=== PATIENT | male | born 1950 | race Caucasian/White ===

== ENCOUNTER 2019-02-18 09:12 | Inpatient (IN) ==
--- NOTE | 2019-02-18 03:00 | Internal Med History&Physical ---
<Tip Montelongo - Last Filed: 02/18/19 06:38> Date of Encounter: 02/18/19 Time of Encounter: 02:30 Internal Medicine - H&P: HPI Chief complaint: Shortness of breath History of present illness: Mr. Sim is a 69 year old former smoker (quit 20 yrs ago) past medical history of atrial fibrillation, hypertension, anxiety peripheral artery disease, COPD who presented to the [facility] because of shortness of breath. Patient has a history of severe emphysema and takes bronchodilators at home, endorses that his symptoms suddenly worsened over the last couple days and he was found to desaturate to 60%, and was brought to the ED at the [facility]. Patient is typically on 3 L of flow nasal cannula at home. He denies any recent sick contacts or travels. He tells me that he had seen his PCP about a month ago for an upper respiratory infection, was given a course of antibiotics and he he completed the course. Patient denies any recent steroid use. Denies any increase in frequency of cough or change in the color of his sputum. He denies any chest pain, nausea, diaphoresis, numbness or tingling in extremities. Initial workup in the ED at the [facility] showed a patient was afebrile, BP 116/71,RR:24, spO2: 57% on 4L NC. His ABG showed primary respiratory alkalosis with metabolic acidosis with pH : 7.41, pCO2: 28.5 with a HCO3 of 18.2. Patient had an elevated lactic acid of 4.4, WBC 14.3, Hb 14.7, UA was positive for large leukocyte esterase, and blood, with protein of 100. Patient's CTA was negative for any pulmonary embolism. However, CTA showed bilateral lower lobe consolidation suggestive of pneumonia. There also concern for mediastinal lymphadenopathy as well as partially calcified right pulmonary mass which could be granulomatous or neoplastic in nature. CTA also showed chronic occlusion of the abdominal aorta with collateralization. Patient was transferred to the [facility] because of concerns for sepsis secondary to UTI/ pneumonia Past Med Surg Social Fam HX - Past Medical History Medical history: atrial fibrillation, CHF, COPD Additional medical history: chf/afib/copd/knee sx/home 02/back sx/pelvis sx/right hip pinning/ Psychiatric history: anxiety - Past Surgical History Surgical History: hip replacement Additional surgical history: knee sx/home 02/back sx/pelvis sx/right hip pinning/ - Social History Smoking Status: Former smoker Packs per day: 1 Smokeless Tobacco Status: No Alcohol use: none Drug use: none Internal Medicine - H&P: Meds Alprazolam 0.5 mg PO TID PRN 10/22/15 [History] Aspirin Enteric Coated [Aspirin EC] 162 mg PO DAILY #10 tablet.dr 10/22/15 [Rx] Budesonide [Pulmicort Flexhaler 180mcg] 180 mcg AER BID 10/22/15 [History] Buspirone [Buspar] 15 mg PO TID 10/22/15 [History] Citalopram 40 mg PO QDPC 10/22/15 [History] Duloxetine 60 mg PO QDPC 10/22/15 [History] Furosemide 40 mg PO 3XW 10/22/15 [History] Ipratropium/Albuterol Sulfate 0.5 mg AER BID 10/22/15 [History] Metoprolol 75 mg PO QDPC 10/22/15 [History] Minocycline 100 mg PO QDPC 10/22/15 [History] Multivitamin [Multi-Day Vitamins] PO QDPC 10/22/15 [History] Omeprazole [PriLOSEC] 40 mg PO QDPC 10/22/15 [History] OxyCODONE Immed Rel [Roxicodone 5 MG] 5 - 10 mg PO Q6HR PRN #30 tablet 10/22/15 [Rx] Tamsulosin [Flomax] 0.4 mg PO QDPC 10/22/15 [History] Tiotropium [Spiriva] 18 mcg AER QDPC 10/22/15 [History] Allergy/AdvReac Type Severity Reaction Status Date / Time vancomycin Allergy Hives Verified 10/22/15 12:53 All Systems PM: A 10-system review of systems was performed and is negative for pertinent findings except as documented above in the HPI. - Constitutional Constitutional: no fever(s) - Cardiovascular Cardiovascular ROS IM: no chest pain - Respiratory Respiratory: no cough, no hemoptysis - Gastrointestinal Gastrointestinal: no abdominal pain - Musculoskeletal Musculoskeletal ROS IM: no arthralgias - Constitutional Vitals: Temp Pulse Resp BP Pulse Ox 98.4 F 79 22 135/81 92 02/18/19 02:08 02/18/19 02:08 02/18/19 02:08 02/18/19 02:08 02/18/19 02:08 Exam: Gen.: Vitals noted. No acute distress. Alert, awake and oriented * [address], and time, well developed, well-nourished resting comfortably in bed. Pleasant. HEENT: oropharynx clear, Normocephalic, atraumatic, MMM Neck: supple, no JVD, no lymphadenopathy, no carotid bruit. Cardiac: RRR, no murmur, +S1/S2, No BLE edema, PMI non-displaced Pulmonary: decreased breath sounds bilaterally, no wheezes, rales or rhonchi, equal chest expansion, Abdomen: soft, nontender, BS noted, no guarding, non- distended. No organomegaly, no pulsatile masses, Skin: warm and dry, no visible lesions. Feels warm, clammy, no rashes, no lesions, no erythema MSK: Right hip pain which is chronic in nature . Faint pulse bilaterally in the lower extremities likely due to PVD. ROM not assessed. no joint swelling noted, gait not assessed while in bed. Non tender calf or clubbing, no cyanosis/clubbing/ or edema Neuro: A&O, moves all extremities, no focal deficits, sensation intact Psych: Appropriate mood and behavior, normal speech. Internal Med - H&P Results - Labs CBC & Chem 7: 02/18/19 04:35 02/18/19 04:35 - Assessment and Plan (1) Sepsis Current Visit: Yes Status: Acute Assessment and plan: -Likely secondary to UTI/pneumonia. -Patient met 2/4 SIRS criteria with HR118, WBC: 14.3. Lactate was 4.4 -Patient's UA was positive for large leukocyte esterase with proteinurea -Patient's CTA was positive for bilateral low lobe consolidation with concerns for pneumonia -Patient is on 3 L of home oxygen but he is currently on 60 L of high flow PLAN: -Legionella and S pneumo antigen pending. -sputum and blood cultures pending - MRSA swab pending - Currently on broad spectrum Abx Vanc and Zosyn. We will give her Benadryl to the patient because patient develops rashes with vancomycin .We will de-escalate pending culture sensitivities Qualifiers: Qualified Code(s): A41.9 - Sepsis, unspecified organism (2) Acute respiratory failure with hypoxia Current Visit: Yes Status: Acute Assessment and plan: same as above (3) COPD (chronic obstructive pulmonary disease) Current Visit: No Status: Chronic Assessment and plan: -Has a history of for severe emphysema. -He is on Spiriva as his home inhaler -Does not appear to be in COPD exacerbation because patient does not having increase in frequency of cough or change in the color of sputum -Patient's CT showed severe emphysema along with heterogenous pulmonary opacities. -Currently on DuoNeb's when necessary. No indications for steroids at the moment Qualifiers: COPD type: emphysema Emphysema type: unspecified Qualified Code(s): J43.9 - Emphysema, unspecified (4) Pneumonia Current Visit: Yes Status: Acute Assessment and plan: -Patient's CTA at the [facility] ED showed lateral lower lobe consolidation suggestive of pneumonia -On physical exam he has a decreased breath sounds bilaterally. No evidence of wheezing rhonchi or rales. -He has remained afebrile and is not leukocytosis -Currently on broad-spectrum antibiotics -Blood and sputum cultures pending -Legionella and strep pneumo antigens pending Qualifiers: Qualified Code(s): J18.9 - Pneumonia, unspecified organism (5) UTI (urinary tract infection) Current Visit: Yes Status: Acute Assessment and plan: -Recent UA showed a large amount of leukocyte esterase , proteinuria and hematuria -Physical exam he endorses a mildsuprapubic tenderness. -Currently on Rocephin for UTI Qualifiers: Qualified Code(s): N39.0 - Urinary tract infection, site not specified; R31.9 - Hematuria, unspecified (6) Peripheral vascular disease Current Visit: Yes Status: Acute Assessment and plan: -Patient's CTA abdomen showed extensive atherosclerotic calcification of the abdominal aorta with collateralization. -On physical exam, patient has diminished bilateral lower extremity pulses. -We will consult vascular surgery and await their recommendations (7) DVT prophylaxis Current Visit: Yes Status: Acute Assessment and plan: scds - Time Spent With Patient Total time spent is greater than 50% in coordination of care (as documented) at patient's floor/unit and/or counseling patient: <Alan Dan - Last Filed: 02/18/19 08:30> Date of Encounter: 02/18/19 Internal Medicine - H&P: HPI History of present illness: Mr. Sim is a 69 year old male All Systems PM: A 10-system review of systems was performed and is negative for pertinent findings except as documented above in the HPI. - Constitutional Vitals: Temp Pulse Resp BP Pulse Ox 99.1 F 73 18 95/61 91 02/18/19 08:00 02/18/19 08:00 02/18/19 08:00 02/18/19 08:00 02/18/19 08:00 Internal Med - H&P Results - Labs CBC & Chem 7: 02/18/19 04:35 02/18/19 04:35 Labs: Short CBC 02/18/19 Range/Units 04:35 WBC 9.6 (4.3-11.1) K/mcL Hgb 14.7 (12.9-16.9) g/dL Hct 44.4 (37.5-50.1) % Plt Count 120 L (140-400) K/mcL Neutrophils # 8.4 (1.6-8.9) K/mcL BMP 02/18/19 04:35 Sodium 134 L Potassium 4.3 Chloride 104 Carbon Dioxide 20 L BUN 26 H Creatinine 1.39 H Glucose 156 H Calcium 8.6 Cardiac Enzymes 02/18/19 Range/Units 04:35 Troponin I 0.03 (< 0.04) ng/mL - ABG Interpretation ABG results: 02/18/19 04:02 ABG pH 7.43 ABG pCO2 30 L ABG pO2 79 L ABG HCO3 20 L ABG Total CO2 21 ABG O2 Saturation 96 ABG Base Excess -3 L - Time Spent With Patient Total time spent is greater than 50% in coordination of care (as documented) at patient's floor/unit and/or counseling patient: - Attending Attestation I performed a history and physical examination of the patient and discussed his management with the resident. I reviewed the resident's note and agree with the assessment and plan of care. Patient with a history of severe emphysema admitt ed for COPD exacerbation plus or minus underlying pneumonia. CTA ruled out PE. We will start patient on broad-spectrum antibiotics due to reports of recent outpatient treatment. We will obtain flu swab. Patient did not tolerate BiPAP and is currently on high flow and stable from respiratory standpoint. Patient does have a history of peripheral arterial disease and has been complaining of chronic intermittent cramping of his lower extremities. There was difficulty obtaining lower extremity pulses with Doppler. Recommend vascular consult.
[2019-02-18] MEDS: Ipratropium/Albuterol Neb 3 ML IH SCH ×6 (04:05→23:16)
[2019-02-18 04:07] LABS: ABG Base Excess -3 mEq/L (-2 to 3); ABG HCO3 20 mEq/L (21-27); ABG Oxygen Saturation 96 % (95-98); ABG PCO2 30 mmHg (35-45); ABG PH 7.43 pH Units (7.32-7.45); ABG PO2 79 mmHg (85-104); ABG TCO2 21 mEq/L (20-26)
[2019-02-18 04:49] LABS: Basophils % 0.1 %; Hematocrit 44.4 % (37.5-50.1); Hemoglobin 14.7 g/dL (12.9-16.9); Immature Granulocytes % 0.6 % (0-4); Lymphocytes # 0.8 K/mcL (0.6-4.6); Lymphocytes % 7.8 %; Mean Corpuscular HGB Conc 33.1 g/dL (31.6-35.5); Mean Corpuscular Hemoglobin 28.9 pg (28.0-33.3); Mean Corpuscular Volume 87.4 fL (83.0-100.0); Mean Platelet Volume 11.5 fL (9.4-12.4); Monocytes # 0.4 K/mcL (0.0-1.3); Monocytes % 4.6 %; Neutrophils # 8.4 K/mcL (1.6-8.9); Platelet Count 120 K/mcL (140-400); Red Blood Count 5.08 M/mcL (4.19-5.50); Red Cell Distribution Width 14.6 % (11.5-14.5); Segmented Neutrophils % 86.9 %
[2019-02-18 05:06] LABS: BUN/Creatinine Ratio 19 (6-26); Blood Urea Nitrogen 26 mg/dL (8-23); Calcium 8.6 mg/dL (8.6-10.3); Carbon Dioxide 20 mEq/L (23-29); Chloride 104 mEq/L (98-107); Glucose 156 mg/dL (70-105); Osmolality,Calculated 286 (280-300); Potassium 4.3 mEq/L (3.5-5.1); Sodium 134 mEq/L (136-145); eGFR For Non-African Americans 51 (> 60)
[~2019-02-18 09:12] MED LIST: Naloxone 0.4 MG/ML INJ IVP PRN; Piperacillin/Tazobactam 3.375 GM in 0.9 % Sodium Chloride Mini Bag 100 ML IVPB SCH
[2019-02-18] MEDS ORDERED: Aminoglycoside Consult 1 EACH MC ONE (09:20)
--- NOTE | 2019-02-18 10:30 | Vascular/Endovasc Consult Note ---
Date of Encounter: 02/18/19 Time of Encounter: 08:15 Assessment and Plan (1) COPD (chronic obstructive pulmonary disease) Current Visit: Yes Status: Chronic Patient has chronic and severe COPD. He is clearly not a candidate for open revascularization for his aortic occlusion. At this point he is not a candidate for an extra anatomic bypass as well. Qualifiers: COPD type: emphysema Emphysema type: unspecified Qualified Code(s): J43.9 - Emphysema, unspecified (2) Peripheral vascular disease Current Visit: Yes Status: Chronic Patient demonstrates chronic aortic occlusion and probable chronic lower extremity disease. The lower extremity disease has not been documented to my knowledge. Due to his ongoing pulmonary concerns and possible pneumonia and exacerbation of COPD he is not a candidate for anesthesia or endovascular intervention. In order to better understand his lower extremity status I will obtain ABIs. (3) Pneumonia Current Visit: Yes Status: Acute Patient reported as having a pneumonia from outside hospital. Patient will be further evaluated by the hospitalist and pulmonology services. Qualifiers: Pneumonia type: due to unspecified organism Laterality: unspecified laterality Lung location: unspecified part of lung Qualified Code(s): J18.9 - Pneumonia, unspecified organism - History of Present Illness Consult date: 02/18/19 Consult reason: PAD/aortic occlusion Chief complaint: Shortness of breath History of present illness: Mr. Sim is a 69 year old male Who was transferred from the [facility] early this morning. His full history is not completely known as he is not able to provide me which much history but there is a family friend in the room with him this morning. I was called early this morning from the outside hospital to discuss this case because apparently they were concerned about lower extremity pain. However the patient has profound COPD and possible pneumonia. When he was at the other facility his O2 saturation was in the high 50s to low 60% range. I cannot obtain much of a history in regards to his lower extremity issues except that he has had chronic lower extremity pain. He had had a fall from a height of about 10-12 feet over 10 years ago. This led to hip and spine surgery. He has had chronic pain since that time. It is unknown what his true vascular status is but according to the family friend this has been addressed in the past and the patient had declined any intervention. While at [facility] [place] a CT scan was performed of the abdomen and pelvis which was reported as demonstrating an aortic occlusion. I will review those images myself later today. There are no noninvasive studies to review. The patient's history in regards to his ambulation or exercise tolerance is unknown. It is clear he has profound pulmonary disease and uses oxygen at home. His is ill and is on dialysis treatment. Past Med Surg Social Fam HX - Past Medical History Medical history: atrial fibrillation, CHF, COPD Additional medical history: chf/afib/copd/knee sx/home 02/back sx/pelvis sx/right hip pinning/ Psychiatric history: anxiety - Past Surgical History Surgical History: hip replacement Additional surgical history: knee sx/home 02/back sx/pelvis sx/right hip pinning/ - Social History Smoking Status: Former smoker Packs per day: 1 Smokeless Tobacco Status: No Alcohol use: none Drug use: none Medications and Allergies Aspirin Enteric Coated [Aspirin EC] 162 mg PO DAILY #10 tablet. 10/22/15 [Rx] Budesonide [Pulmicort Flexhaler 180mcg] 180 mcg AER BID 10/22/15 [History] Buspirone [Buspar] 15 mg PO TID 10/22/15 [History] Citalopram 40 mg PO QDPC 10/22/15 [History] Duloxetine 60 mg PO QDPC 10/22/15 [History] Furosemide 40 mg PO 3XW 10/22/15 [History] Ipratropium/Albuterol Sulfate 0.5 mg AER BID 10/22/15 [History] Metoprolol 75 mg PO QDPC 10/22/15 [History] Minocycline 100 mg PO QDPC 10/22/15 [History] Multivitamin [Multi-Day Vitamins] PO QDPC 10/22/15 [History] Omeprazole [PriLOSEC] 40 mg PO QDPC 10/22/15 [History] Tamsulosin [Flomax] 0.4 mg PO QDPC 10/22/15 [History] Tiotropium [Spiriva] 18 mcg AER QDPC 10/22/15 [History] Buprenorphine 1 patch TP QWEEK 02/18/19 [History] Oxycodone HCl 15 mg PO Q6H PRN 02/18/19 [History] Allergy/AdvReac Type Severity Reaction Status Date / Time vancomycin Allergy Hives Verified 10/22/15 12:53 All Systems Review: The remainder of the systems were reviewed and are negative Exam Vital Signs, Last 4 Hours Temp Pulse Resp BP Pulse Ox 02/18/19 08:15 73 02/18/19 08:00 99.1 F 73 18 95/61 91 General: Present: Other (Cachectic appearing white male who appears older than his stated age.). Absent: Well developed, Well nourished HEENT: Present: Trachea midline, Other (Facial and neck muscle wasting.) Neck: Absent: JVD, Left Carotid bruit, Right Carotid bruit, Midline deformity, Tracheal deviation Cardiac: Present: Reg Rate and Rhythm, No Murmur Lungs: Present: Decreased breath sounds Neuro: Present: No focal deficits noted Abdomen: Present: Soft, Non-tender Vascular: Present: Pulse, absent (Patient has no palpable femoral, popliteal, or pedal pulses.), Color/Temperature (Patient demonstrates chronic discoloration of a dark purple to black nature on the lower legs and feet region. There are no ulcerations. There is muscle wasting of both lower extremities.). Absent: Edema Skin: Absent: Wound/ulcer(s) Consult Discharge Plan - Plan Referrals: Jennifer Gupta MD [Non-Partnered Physician] - 03/03/19 12:00 pm
--- NOTE | 2019-02-18 14:06 | Pulmonology Consult Note ---
Date of Encounter: 02/18/19 Time of Encounter: 15:30 Assessment and Plan (1) Lung mass Current Visit: Yes Status: Chronic I have reviewed the report from outside hospital and they do not have the access for the images at this time and reading the report this is most likely an old granulomatous mass since patient knows about it and he does not remember if there was a biopsy was done. However because of his previous history of smoking and advanced emphysema that he has malignancies remain in the differential diagnosis. At this time would not recommend any intervention, however as outpatient he could have PET scan or short interval CT chest to see of there is any changes. I have explained this to the patient and also family at the bedside. I offered him to follow-up as outpatient if he would like to do that. (2) Acute and chronic respiratory failure Current Visit: Yes Status: Acute Patient oxygen saturation is acceptable and his been treated for pneumonia with antibiotics and he will remain high at risk for complications since he has advanced lung disease. Titrate FiO2 to keep SPO2 around 90%. Qualifiers: Respiratory failure complication: hypoxia Qualified Code(s): J96.21 - Acute and chronic respiratory failure with hypoxia (3) COPD with exacerbation Current Visit: Yes Status: Acute I will add Symbicort and also I believe he will benefit from short course of systemic steroid. As outpatient he will need to follow-up and he will need pulmonary function test as well as pulmonary rehabilitation. History of Present Illness Consult date: 02/18/19 Requesting physician: Olimpia Arce Reason for consult: lung mass Chief complaint: Shortness of breath History of present illness: This is a very pleasant 69-year-old male with a significant smoking history in the past and he has COPD and he stated he has seen a wig maker in the past and he is only on 1 inhaler that he did not remember the name and he is on home oxygen 3 L/m. Patient was told in the past that he had lung mass about 12 years ago and he does not remember if it was biopsied at that time. Patient was transferred from outside hospital for shortness of breath. He stated he is feeling somewhat better at this time. He denies any chest pain. Patient has some wheezing and denies any increase of his cough or sputum production. Overall he said some days he is active and he never had pulmonary rehabilitation. Pulmonary consulted because CT chest showed abnormalities. He denies any history of sarcoidosis and denies any history of previous tuberculosis. Past Med Surg Social Fam HX - Past Medical History Medical history: atrial fibrillation, CHF, COPD Additional medical history: chf/afib/copd/knee sx/home 02/back sx/pelvis sx/ right hip pinning/ Psychiatric history: anxiety - Past Surgical History Surgical History: hip replacement Additional surgical history: knee sx/home 02/back sx/pelvis sx/right hip pinning/ - Social History Smoking Status: Former smoker Packs per day: 1 Smokeless Tobacco Status: No Alcohol use: none Drug use: none Medications and Allergies Aspirin Enteric Coated [Aspirin EC] 162 mg PO DAILY 02/18/19 [History] Buprenorphine 1 patch TP QWEEK 02/18/19 [History] Buspirone HCl [Buspar] 5 mg PO 02/18/19 [History] Duloxetine HCl [Cymbalta] 60 mg PO DAILY 02/18/19 [History] Fluticasone Propionate Nasal [Flonase] 50 mcg NS DAILY 02/18/19 [History] Furosemide [Lasix] 40 mg PO Q48H 02/18/19 [History] Multivit-Min/Iron/Folic Acid/K [Adults Multivitamin Tablet] 1 each PO DAILY 02/18/19 [History] Omeprazole [PriLOSEC] 40 mg PO DAILY 02/18/19 [History] Oxycodone HCl 15 mg PO Q6H PRN 02/18/19 [History] Tamsulosin [Flomax] 0.4 mg PO DAILY 02/18/19 [History] Tiotropium [Spiriva] 18 mcg IH DAILY 02/18/19 [History] Tizanidine HCl [Zanaflex] 2 mg PO BID 02/18/19 [History] Allergy/AdvReac Type Severity Reaction Status Date / Time vancomycin Allergy Hives Verified 10/22/15 12:53 All Systems: The remainder of the systems were reviewed and are negative Physical Examination Vital Signs: Vital Signs, Last 4 Hours Temp Pulse Resp BP Pulse Ox 02/18/19 11:46 20 99/68 94 02/18/19 11:42 98.7 F 66 20 99/68 94 General appearance: appears uncomfortable Eyes: nonicteric ENT: oropharynx dry Neck: supple, no lymphadenopathy Effort: mildly labored Inspection: hyperextended Auscultation: bilateral: diminished breath sounds Percussion: bilateral: not dull Tactile fremitus: bilateral: normal Cardiovascular: regular rate and rhythm Gastrointestinal: normoactive bowel sounds, non-distended Integumentary: other (Discoloration of the lower extremities) Extremities: no cyanosis, no edema normal mental status, non-focal exam mood appropriate Results - Laboratory Findings CBC and BMP: 02/18/19 04:35 02/18/19 04:35 ABG ABG pH 7.43 pH Units (7.32-7.45) 02/18/19 04:02 ABG pCO2 30 mmHg (35-45) L 02/18/19 04:02 ABG pO2 79 mmHg (85-104) L 02/18/19 04:02 ABG O2 Saturation 96 % (95-98) 02/18/19 04:02 Abnormal lab findings: Abnormal lab results RDW 14.6 % (11.5-14.5) H 02/18/19 04:35 Plt Count 120 K/mcL (140-400) L 02/18/19 04:35 ABG pCO2 30 mmHg (35-45) L 02/18/19 04:02 ABG pO2 79 mmHg (85-104) L 02/18/19 04:02 ABG HCO3 20 mEq/L (21-27) L 02/18/19 04:02 ABG Base Excess -3 mEq/L (-2 to 3) L 02/18/19 04:02 Sodium 134 mEq/L (136-145) L 02/18/19 04:35 Carbon Dioxide 20 mEq/L (23-29) L 02/18/19 04:35 BUN 26 mg/dL (8-23) H 02/18/19 04:35 Creatinine 1.39 mg/dL (0.70-1.30) H 02/18/19 04:35 Est GFR (Non-Af Amer) 51 (> 60) L 02/18/19 04:35 Glucose 156 mg/dL (70-105) H 02/18/19 04:35 POC Glucose 143 mg/dL (70-99) H 02/18/19 05:11 B-Natriuretic Peptide 1845 pg/mL (Less than 100) H 02/18/19 04:35 - Microbiology Findings Microbiology Findings: Microbiology, Last 48 Hours 02/18/19 04:01 Influenza Types A,B Antigen - Final Nasopharyngeal 02/18/19 04:27 Blood Culture - Preliminary Peripheral Venipuncture Culture is incubating and being continuously monitored for growth. Final report to follow. 02/18/19 04:35 Blood Culture - Preliminary Peripheral Venipuncture Culture is incubating and being continuously monitored for growth. Final report to follow. - Diagnostic Findings CT scan - chest: report reviewed - Clinical Findings Intake & Output: Intake & Output 02/17/19 02/18/19 02/18/19 23:59 07:59 15:59 Output Total 0 / 0 100 / 100 Balance 0 / 0 -100 / -100 Weight 63.7 kg Consult Discharge Plan - Plan Referrals: Jennifer Gupta MD [Non-Partnered Physician] - 03/03/19 12:00 pm
[2019-02-18] MEDS ORDERED: BUPRENORPHINE TP SCH (15:00)
--- NOTE | 2019-02-18 15:00 | Event Note ---
Date of Encounter: 02/18/19 Time of Encounter: 11:57 Patient was examined. Review of the vascular surgeon note -not the surgical candidate at this time but OSORIO ordered. Consulted tank truck driver. Review the med-rac. MRSA screen negative therefore is stopped vancomycin. Continue Zosyn for now. 3 L home oxygen.
[2019-02-18] MEDS: Piperacillin/Tazobactam 3.375 GM in 0.9 % Sodium Chloride Mini Bag 100 ML IVPB SCH ×2 (16:30→22:44)
[2019-02-18] MEDS: Furosemide 40 MG TABLET PO SCH (16:31)
[2019-02-18] MEDS: *HR* OxyCODONE Immed Rel 15 MG TABLET PO PRN ×2 (16:38→22:43)
[2019-02-18] MEDS: MethylPREDNISolone 40 MG/ML VIAL IVP SCH (18:58)
[2019-02-18] MEDS: Budesonide/Formoterol 160/4.5 1 PUFF INH IH SCH (20:02)
[2019-02-18] MEDS: tiZANidine 4 MG TABLET PO SCH (20:18)
[2019-02-19] MEDS: Ipratropium/Albuterol Neb 3 ML IH SCH ×6 (03:27→23:46)
[2019-02-19] MEDS: *HR* OxyCODONE Immed Rel 15 MG TABLET PO PRN ×4 (04:48→23:52)
[2019-02-19] MEDS: MethylPREDNISolone 40 MG/ML VIAL IVP SCH (05:56)
[2019-02-19] MEDS: Piperacillin/Tazobactam 3.375 GM in 0.9 % Sodium Chloride Mini Bag 100 ML IVPB SCH ×2 (05:57→14:07)
[2019-02-19 06:54] LABS: Hematocrit 40.7 % (37.5-50.1); Hemoglobin 13.8 g/dL (12.9-16.9); Immature Granulocytes % 0.5 % (0-4); Lymphocytes # 0.6 K/mcL (0.6-4.6); Lymphocytes % 5.6 %; Mean Corpuscular HGB Conc 33.9 g/dL (31.6-35.5); Mean Corpuscular Hemoglobin 29.4 pg (28.0-33.3); Mean Corpuscular Volume 86.6 fL (83.0-100.0); Mean Platelet Volume 11.2 fL (9.4-12.4); Monocytes # 0.7 K/mcL (0.0-1.3); Monocytes % 7.5 %; Neutrophils # 8.4 K/mcL (1.6-8.9); Platelet Count 127 K/mcL (140-400); Segmented Neutrophils % 86.4 %
[2019-02-19 07:15] LABS: BUN/Creatinine Ratio 19 (6-26); Blood Urea Nitrogen 26 mg/dL (8-23); Calcium 8.5 mg/dL (8.6-10.3); Carbon Dioxide 22 mEq/L (23-29); Chloride 104 mEq/L (98-107); Glucose 132 mg/dL (70-105); Osmolality,Calculated 289 (280-300); Potassium 4.1 mEq/L (3.5-5.1); Sodium 136 mEq/L (136-145); eGFR For Non-African Americans 51 (> 60)
[2019-02-19] MEDS: Budesonide/Formoterol 160/4.5 1 PUFF INH IH SCH ×2 (07:30→19:32)
[2019-02-19] MEDS: tiZANidine 4 MG TABLET PO SCH ×2 (08:02→20:47)
[2019-02-19] MEDS: Multivit/Ca/Min/Fe/FA 1 TAB TABLET PO SCH (08:02)
[2019-02-19] MEDS: Aspirin Enteric Coated 81 MG Tablet PO SCH (08:03)
[2019-02-19] MEDS: Fluticasone Propionate Nasal 50 MCG/SPRAY BOTTLE NS SCH (08:20)
[2019-02-19 09:42] LABS: Basophils % 0.1 %; Hematocrit 44.1 % (37.5-50.1); Hemoglobin 14.6 g/dL (12.9-16.9); Immature Granulocytes % 0.6 % (0-4); Lymphocytes # 0.5 K/mcL (0.6-4.6); Lymphocytes % 4.6 %; Mean Corpuscular HGB Conc 33.1 g/dL (31.6-35.5); Mean Corpuscular Volume 87.5 fL (83.0-100.0); Monocytes # 0.3 K/mcL (0.0-1.3); Neutrophils # 9.9 K/mcL (1.6-8.9); Platelet Count 128 K/mcL (140-400); Red Blood Count 5.04 M/mcL (4.19-5.50); Red Cell Distribution Width 15.3 % (11.5-14.5); Segmented Neutrophils % 91.7 %
--- NOTE | 2019-02-19 11:25 | Vascular/Endovas Progress Note ---
Date of Encounter: 02/19/19 Time of Encounter: 10:30 - Assessment and plan (1) COPD (chronic obstructive pulmonary disease) Current Visit: Yes Status: Chronic Patient has chronic and severe COPD. He is not a candidate for open or endovascular intervention. At this point it is not necessary and he is not symptomatic from a vascular standpoint. I interpret his aortic occlusion is chronic with diffuse collateralization. His lower extremities are viable. The pain he was experiencing at the outside hospital is related to his chronic pain from his back and right hip injury and not ischemic in origin. No further vascular intervention is recommended. This recommendation was discussed in full with the patient as well as the results of the ankle-brachial index.. Vascular surgery will sign off the patient for now. Please reconsult when necessary. Qualifiers: COPD type: emphysema Emphysema type: unspecified Qualified Code(s): J43.9 - Emphysema, unspecified (2) Peripheral vascular disease Current Visit: Yes Status: Chronic Patient demonstrates chronic aortic occlusion and probable chronic lower e xtremity disease. The lower extremity disease demonstrates an ankle-brachial index of 0.61 which I interpreted as representing a chronic level of moderate ischemia bilaterally. This is not lifestyle limiting. He does not have limb threatening ischemia.. Due to his ongoing pulmonary concerns and possible pneumonia and exacerbation of COPD he is not a candidate for anesthesia for open aortic repair or endovascular manipulation. (3) Pneumonia Current Visit: Yes Status: Acute Patient reported as having a pneumonia from outside hospital. Patient will be further evaluated by the hospitalist and pulmonology services. Qualifiers: Pneumonia type: due to unspecified organism Laterality: unspecified laterality Lung location: unspecified part of lung Qualified Code(s): J18.9 - Pneumonia, unspecified organism - Subjective Interval history: Patient has no new complaints. States he is feeling better today than yesterday. States he is breathing better today than yesterday. Vital Signs, Last 4 Hours Temp Pulse Resp BP Pulse Ox 02/19/19 11:19 97.5 F L 82 18 102/74 90 02/19/19 11:18 18 93 02/19/19 07:31 18 96 02/19/19 07:24 97.8 F 81 18 121/77 92 - Physical Examination General: Present: Conversant, Other (Ill-appearing white male who in appearance older than his stated age.) HEENT: Present: Atraumatic Lungs: Present: Decreased breath sounds, No Wheeze, Rales, Rhonchi Neuro: Present: Alert and responsive Vascular: Present: Pulse, absent (Patient has no palpable lower extremity pulses.), Color/Temperature (Feet are warm. Capillary refill is 2 seconds.) Results 02/19/19 08:52 02/19/19 06:31 Lab Results, Last 24 hours 02/19/19 02/19/19 02/19/19 06:31 06:31 08:52 WBC 9.7 10.8 Hgb 13.8 14.6 Hct 40.7 44.1 Plt Count 127 L 128 L Sodium 136 Potassium 4.1 Chloride 104 Carbon Dioxide 22 L BUN 26 H Creatinine 1.37 H Glucose 132 H Calcium 8.5 L - Imaging / Other Tests Non Invasive Vascular Testing: report reviewed, image reviewed (Ankle brachial index is 0.61 bilaterally. I drilled this is a chronic situation for the patient reflecting his chronic aortic occlusion.) Consult Discharge Plan - Plan Referrals: Jennifer Gupta MD [Non-Partnered Physician] - 03/03/19 12:00 pm
[2019-02-19] MEDS: *HR* Heparin 5,000 UNIT/ML VIAL SQ SCH ×2 (14:07→20:47)
--- NOTE | 2019-02-19 15:45 | Internal Med Progress Note ---
Hospitalist Progress Note - Encounter Date of Encounter: 02/19/19 Time of Encounter: 15:43 - Subjective Interval History: Better shortness of breath. Patient is sitting on the chair. Oxygen 4 L by nasal cannula. Review the lab. High BNP 1845 Denies fever chills chest pain nausea vomiting abdominal pain urinary complaint or diarrhea. - Exam Vitals: Temp Pulse Resp BP Pulse Ox 97.5 F L 82 18 102/74 90 02/19/19 11:19 02/19/19 11:19 02/19/19 11:19 02/19/19 11:19 02/19/19 11:19 Exam: General appearance: No acute distress, A&O X 3. Cachectic. Sitting on the chair with 4 L oxygen by nasal cannula Head exam: Atraumatic Eye exam: EOMI, PERRLA ENT exam: Moist oral mucosa Neck nontender, supple Respiratory exam: Bilaterally scattered wheezing and rales. Cardiovascular exam: Regular rate and rhythm, no systolic murmur Abdominal exam: Soft, nontender, nondistended, positive bowel sounds Extremities exam: No calf tenderness, trace pedal edema Present: Skin-no rash, warm, dry, intact Neurological exam: CN II-XII intact, no focal deficits. No facial droop. Normal speech. - Assessment and Plan (1) Sepsis Current Visit: Yes Status: Acute Assessment and Plan: -Likely secondary to UTI/pneumonia. -Patient met 2/4 SIRS criteria with HR118, WBC: 14.3. Lactate was 4.4-repeat lactate normal -Patient's UA was positive for large leukocyte esterase with proteinurea -Patient's CTA was positive for bilateral low lobe consolidation with concerns for pneumonia -On admission Patient is on 3 L of home oxygen but he is currently on 60 L of high flow Resolved sepsis. A sputum and blood culture with no growth so far. Initially when: Zosyn is started. Vancomycin was is stopped as MRSA screening negative. Stopped Zosyn now and is started Omnicef 300 mg by mouth twice a day. (2) Pneumonia Current Visit: Yes Status: Acute Assessment and Plan: -Patient's CT[facility] at the [facility] ED showed lateral lower lobe consolidation suggestive of pneumonia -On physical exam he has a decreased breath sounds bilaterally. No evidence of wheezing rhonchi or rales. -He has remained afebrile and is not leukocytosis -Initially broader spectrum antibiotic was restarted and now D escalated. G A strep pneumoniae negative. Consulted network technology instructor who agreed with current treatment. Patient is getting back to his baseline home oxygen requirement that he takes 3-4 L by nasal cannula. (3) Acute respiratory failure with hypoxia Current Visit: Yes Status: Acute Assessment and Plan: History of advanced lung disease with severe emphysema. Keep SPO2 around 90% (4) Lung mass Current Visit: Yes Status: Chronic Assessment and Plan: Based on CT chest done outside this hospital. Consulted network technology instructor most likely an old granulomatous mass. Based on previous history of a smoking and advanced emphysema further workup was planned by pulmonologists on OPD basis. Patient could have [place] cannot short interval CT chest to see if there is any changes. Patient will follow pulmonologists on OPD basis. (5) UTI (urinary tract infection) Current Visit: Yes Status: Acute Assessment and Plan: Abnormal UA but no growth on urine culture yet. (6) COPD (chronic obstructive pulmonary disease) Current Visit: Yes Status: Chronic Assessment and Plan: With exacerbation. IV steroid DuoNeb and high flow oxygen was given initially. Now patient improving therefore will list of IV steroid and a started prednisone 40 mg by mouth daily. Symbicort added. Continue DuoNeb when necessary. Follow-up with pulmonologists on OPD basis (7) Peripheral vascular disease Current Visit: Yes Status: Chronic Assessment and Plan: -Patient's CTA abdomen showed extensive atherosclerotic calcification of the abdominal aorta with collateralization. -On physical exam, patient has diminished bilateral lower extremity pulses. Vascular surgeon was consulted-as per his note patient has chronic aortic occlusion and probable chronic lower extremity disease. OSORIO 0.61 which is considered a chronic level of moderate ischemia bilaterally with no limb thr eatening ischemia. Due to ongoing pulmonary concern with advanced underlying lung disease patient was not found a candidate for an SCC of for open aortic repair or endovascular manipulation. (8) DVT prophylaxis Current Visit: Yes Status: Acute Assessment and Plan: heparin - Time Spent with Patient Total time spent is greater than 50% in coordination of care (as documented) at patient's floor/unit and/or counseling patient: 25 - 35 minutes Plan of Care Discussed with: patient Internal Medicine: Result - Labs CBC & Chem 7: 02/19/19 08:52 02/19/19 06:31 Labs: Short CBC 02/19/19 02/19/19 Range/Units 06:31 08:52 WBC 9.7 10.8 (4.3-11.1) K/mcL Hgb 13.8 14.6 (12.9-16.9) g/dL Hct 40.7 44.1 (37.5-50.1) % Plt Count 127 L 128 L (140-400) K/mcL Neutrophils # 8.4 9.9 H (1.6-8.9) K/mcL BMP 02/19/19 06:31 Sodium 136 Potassium 4.1 Chloride 104 Carbon Dioxide 22 L BUN 26 H Creatinine 1.37 H Glucose 132 H Calcium 8.5 L - ABG Interpretation ABG results: ABG ABG pH 7.43 pH Units (7.32-7.45) 02/18/19 04:02 ABG pCO2 30 mmHg (35-45) L 02/18/19 04:02 ABG pO2 79 mmHg (85-104) L 02/18/19 04:02 ABG O2 Saturation 96 % (95-98) 02/18/19 04:02 Consult Discharge Plan - Plan Referrals: Jennifer Gupta MD [Non-Partnered Physician] - 03/03/19 12:00 pm (1) Sepsis Qualifiers: Sepsis type: sepsis due to unspecified organism Qualified Code(s): A41.9 - Sepsis, unspecified organism (2) Pneumonia Qualifiers: Pneumonia type: due to unspecified organism Laterality: unspecified laterality Lung location: unspecified part of lung Qualified Code(s): J18.9 - Pneumonia, unspecified organism (5) UTI (urinary tract infection) Qualifiers: Hematuria presence: without hematuria (6) COPD (chronic obstructive pulmonary disease) Qualifiers: COPD type: emphysema Emphysema type: unspecified Qualified Code(s): J43.9 - Emphysema, unspecified
[2019-02-19] MEDS: Cefdinir 300 MG CAPSULE PO SCH (20:47)
[2019-02-20] MEDS: Ipratropium/Albuterol Neb 3 ML IH SCH ×4 (04:13→16:14)
[2019-02-20 05:00] LABS: BUN/Creatinine Ratio 23 (6-26); Blood Urea Nitrogen 29 mg/dL (8-23); Calcium 8.9 mg/dL (8.6-10.3); Carbon Dioxide 23 mEq/L (23-29); Chloride 106 mEq/L (98-107); Glucose 125 mg/dL (70-105); Osmolality,Calculated 289 (280-300); Sodium 136 mEq/L (136-145); eGFR For Non-African Americans 57 (> 60)
[2019-02-20] MEDS: *HR* OxyCODONE Immed Rel 15 MG TABLET PO PRN ×3 (06:01→18:34)
[2019-02-20] MEDS: *HR* Heparin 5,000 UNIT/ML VIAL SQ SCH ×2 (06:01→13:39)
[2019-02-20] MEDS: Budesonide/Formoterol 160/4.5 1 PUFF INH IH SCH (08:09)
[2019-02-20] MEDS ORDERED: predniSONE 20 MG TABLET PO SCH (09:00)
[2019-02-20] MEDS: Fluticasone Propionate Nasal 50 MCG/SPRAY BOTTLE NS SCH (10:17)
[2019-02-20] MEDS: Aspirin Enteric Coated 81 MG Tablet PO SCH (10:41)
[2019-02-20] MEDS: Multivit/Ca/Min/Fe/FA 1 TAB TABLET PO SCH (10:42)
[2019-02-20] MEDS: Cefdinir 300 MG CAPSULE PO SCH (10:42)
[2019-02-20] MEDS: tiZANidine 4 MG TABLET PO SCH (10:42)
[2019-02-20] MEDS: Furosemide 40 MG TABLET PO SCH (13:39)
--- NOTE | 2019-02-20 14:41 | Discharge Summary ---
- NOTES TO OUTPATIENT PROVIDER Notes to Outpatient Provider: Follow-up with PCP in 3-5 days. Blood culture follow-up final report. Follow-up with vascular surgeon as per PCP decision. Follow with his pulmonologists in 1-2 weeks for outpatient workup for PET scan or short interval CT chest for granulomatous mass in the lung. Follow up with internet application developer for pulmonary hypertension management after discussing with PCP Orders not resulted at time of discharge: Pending orders 02/18/19 03:00 Legionella Antigen [RM] Routine 02/18/19 03:01 Streptococcal pneumoniae urin antigen [S. Pneumoniae Antigen] [RM] Routine 02/18/19 04:27 Culture,Blood [BC] Routine 02/18/19 05:43 Sputum Culture [Culture,Sputum with Gram Stain] [RM] Routine 02/21/19 04:00 BMP [Basic Metabolic Panel] AM 0400 Date of Encounter: 02/20/19 Time of Encounter: 14:39 - Discharge Diagnosis (1) Sepsis Priority: Primary Status: Acute Assessment and Plan: -Likely secondary to UTI/pneumonia. -Patient met 2/4 SIRS criteria with HR118, WBC: 14.3. Lactate was 4.4-repeat lactate normal -Patient's UA was positive for large leukocyte esterase with proteinurea -Patient's CTA was positive for bilateral low lobe consolidation with concerns for pneumonia -On admission Patient is on 3 L of home oxygen but he is currently on 60 L of high flow Resolved sepsis. A sputum and blood culture with no growth so far. Initially when: Zosyn is started. Vancomycin was is stopped as MRSA screening negative. Stopped Zosyn now and is started Omnicef 300 mg by mouth twice a day. Patient is requiring baseline home oxygen 3 L by nasal cannula and almost back to baseline status. Will discharge patient on Omnicef 300 mg by mouth twice a day for 7 days. Qualifiers: Sepsis type: sepsis due to unspecified organism Qualified Code(s): A41.9 - Sepsis, unspecified organism (2) Pneumonia Priority: Primary Status: Acute Assessment and Plan: -Patient's CTA at the [facility] ED showed lateral lower lobe consolidation suggestive of pneumonia -On physical exam he has a decreased breath sounds bilaterally. No evidence of wheezing rhonchi or rales. -He has remained afebrile and is not leukocytosis -Initially broader spectrum antibiotic was restarted and now D escalated. G A strep pneumoniae negative. Consulted set and exhibit designer who agreed with current treatment. Please see above for details. Patient will follow set and exhibit designer in 1-2 weeks. Qualifiers: Pneumonia type: due to unspecified organism Laterality: unspecified laterality Lung location: unspecified part of lung Qualified Code(s): J18.9 - Pneumonia, unspecified organism (3) Acute respiratory failure with hypoxia Priority: Primary Status: Acute Assessment and Plan: History of advanced lung disease with severe emphysema. Keep SPO2 around 90% (4) Lung mass Priority: Primary Status: Chronic Assessment and Plan: Based on CT chest done outside this hospital. Consulted set and exhibit designer most likely an old granulomatous mass. Based on previous history of a smoking and advanced emphysema further workup was planned by pulmonologists on OPD basis. Please see ABOVE (5) UTI (urinary tract infection) Priority: Secondary Status: Acute Assessment and Plan: Abnormal UA but no growth on urine culture yet. Qualifiers: Hematuria presence: without hematuria Qualified Code(s): N39.0 - Urinary t ract infection, site not specified (6) COPD (chronic obstructive pulmonary disease) Priority: Primary Status: Chronic Assessment and Plan: With exacerbation. IV steroid DuoNeb and high flow oxygen was given initially. Now patient improving therefore will list of IV steroid and a started prednisone 40 mg by mouth daily. Symbicort added. Continue DuoNeb when necessary. Will discharge patient on tapering steroid Qualifiers: COPD type: emphysema Emphysema type: unspecified Qualified Code(s): J43.9 - Emphysema, unspecified (7) Peripheral vascular disease Priority: Primary Status: Chronic Assessment and Plan: -Patient's CTA abdomen showed extensive atherosclerotic calcification of the abdominal aorta with collateralization. -On physical exam, patient has diminished bilateral lower extremity pulses. Vascular surgeon was consulted-as per his note patient has chronic aortic occlusion and probable chronic lower extremity disease. OSORIO 0.61 which is considered a chronic level of moderate ischemia bilaterally with no limb threatening ischemia. Due to ongoing pulmonary concern with advanced underlying lung disease patient was not found a candidate for surgery for open aortic repair or endovascular manipulation. (8) Pulmonary hypertension Priority: Primary Status: Acute Assessment and Plan: Based on echocardiogram. High BNP but patient does not appear in volume overload. Echocardiogram EF 60% mild LVEDD, severe right atrium dilatation, moderate pulmonary hypertension, mild to moderate tricuspid regurgitation. Patient needs to follow internet application developer on OPD basis after discussing with PCP Hospital course: Mr. Sim is a 69 year old male patient got admitted for bilateral pneumonia, COPD exacerbation, peripheral vascular disease lung mass. Please see details in diagnosis section of discharge summary. At the time of discharge patient is clinically and hemodynamically stable. Patient is to follow-up PCP and set and exhibit designer and internet application developer as recommended. Discharge discussed with: patient, nurse - Time Spent with Patient Total time spent providing and/or coordinating discharge services: Time spent: Less than 30 minutes - Discharge Medications Prescriptions: No Action Buprenorphine 1 patch TP QWEEK Oxycodone HCl 15 mg PO Q6H PRN PRN Reason: Pain Fluticasone Propionate Nasal [Flonase] 50 mcg NS DAILY Tizanidine HCl [Zanaflex] 2 mg PO BID Aspirin Enteric Coated [Aspirin EC] 162 mg PO DAILY Multivit-Min/Iron/Folic Acid/K [Adults Multivitamin Tablet] 1 each PO DAILY Furosemide [Lasix] 40 mg PO Q48H Duloxetine HCl [Cymbalta] 60 mg PO DAILY Tiotropium [Spiriva] 18 mcg IH DAILY Tamsulosin [Flomax] 0.4 mg PO DAILY Omeprazole [PriLOSEC] 40 mg PO DAILY Buspirone HCl [Buspar] 5 mg PO Home Medications: Aspirin Enteric Coated [Aspirin EC] 162 mg PO DAILY 02/18/19 [History] Buprenorphine 1 patch TP QWEEK 02/18/19 [History] Buspirone HCl [Buspar] 5 mg PO 02/18/19 [History] Duloxetine HCl [Cymbalta] 60 mg PO DAILY 02/18/19 [History] Fluticasone Propionate Nasal [Flonase] 50 mcg NS DAILY 02/18/19 [History] Furosemide [Lasix] 40 mg PO Q48H 02/18/19 [History] Multivit-Min/Iron/Folic Acid/K [Adults Multivitamin Tablet] 1 each PO DAILY 02/18/19 [History] Omeprazole [PriLOSEC] 40 mg PO DAILY 02/18/19 [History] Oxycodone HCl 15 mg PO Q6H PRN 02/18/19 [History] Tamsulosin [Flomax] 0.4 mg PO DAILY 02/18/19 [History] Tiotropium [Spiriva] 18 mcg IH DAILY 02/18/19 [History] Tizanidine HCl [Zanaflex] 2 mg PO BID 02/18/19 [History] Budesonide/Formoterol 160/4.5 [Symbicort 160/4.5] 2 puff IH BIDR #1 inh 02/20/19 [Rx] Cefdinir [Omnicef] 300 mg PO BID #14 capsule 02/20/19 [Rx] Ipratropium/Albuterol Neb [Duoneb] 3 ml IH [id number] #[id number] inhsol 02/20/19 [Rx] predniSONE [PredniSONE] 40 mg PO DAILY #12 tablet 02/20/19 [Rx] Allergies/Adverse Reactions: Allergy/AdvReac Type Severity Reaction Status Date / Time vancomycin Allergy Hives Verified 10/22/15 12:53 Date of admission: 02/18/19 09:12 Primary care physician: PCP NONE Consults: 02/18/19 03:05 Consult to Pulmonology [CONS] Routine Consulting Provider: [facility] [place] Reason for Consult: severe emphysema Call Completed: No Consult to Vascular Surgery [CONS] Routine Consulting Provider: Vascular Surgery [place] Reason for Consult: Peripheral vascular disease Call Completed: No 02/18/19 08:24 Consult to Nurse Navigator [CONS] Routine Comment: pneumonia - Constitutional Vitals: Temp Pulse Resp BP Pulse Ox 98.0 F 101 16 119/73 94 02/20/19 09:00 02/20/19 09:00 02/20/19 09:00 02/20/19 09:00 02/20/19 09:00 Exam: General appearance: No acute distress, A&O X 3, oxygen 3 L by nasal cannula Head exam: Atraumatic Eye exam: EOMI, PERRLA ENT exam: Moist oral mucosa Neck nontender, supple Respiratory exam: Slight diminished breath sounds with scattered rhonchi-better Cardiovascular exam: Regular rate and rhythm, no systolic murmur Abdominal exam: Soft, nontender, nondistended, positive bowel sounds Extremities exam: No calf tenderness, no pedal edema Present: Skin-no rash, warm, dry, intact Neurological exam: Alert, awake, oriented 3, CN II-XII intact, no focal deficits. - Patient Status Disposition: Home, Self-Care Condition: Fair Overall status at discharge: patient is progressing back to baseline - Discharge Instructions Follow Up With: Jennifer Gupta MD [Non-Partnered Physician] - 03/03/19 12:00 pm - Diet and Activity Activity: increase activity as tolerated Diet: advance to your usual diet
[2019-02-20 18:49] VITALS: BP 136/87
== END 2019-02-20 19:25 | disposition home or self-care (01) | DRG 871 ==
LOC: 2NNU → 3NENU 02-19 16:51
PROVIDERS: ADMIT Internal Medicine; ATTEND Internal Medicine